=== PATIENT | female | born 2000 | race Hispanic/Latino ===

== ENCOUNTER → 2022-08-29 | Outpatient (CLI) | payer OTHER, SELFPAY ==
[2022-08-29 12:34] LABS: Absolute Lymphocyte Count 2.97 X10^3/uL (0.83-4.51); Absolute Neutrophil Count 3.2 X10^3/uL (2.0-7.7); Basophil# 0.02 X10^3/uL; Basophil% 0.3 % (0-1); Eosinophil# 0.16 X10^3/uL; Eosinophils% 2.3 % (0-5); Hematocrit 41.2 % (37-47); Hemoglobin 13.4 g/dL (12.0-15.0); Lymphocyte # 2.97 X10^3/ul (0.83-4.51); Lymphocyte % 43.5 % (19-41); Mean Corp Hgb Conc 32.5 g/dL (32-36); Monocyte# 0.43 X10^3/uL; Monocyte% 6.3 % (0-10); NRBC Flagged by Analyzer 0 % (0-5); Neutrophil # 3.23 X10^3/uL (2.7-7.7); Neutrophil % 47.5 % (47-70); Platelet Count 251 K/mm3 (150-450); RBC Distribution Width CV 13.9 % (11.6-14.6); RBC Distribution Width SD 43.7 fl (35.1-43.9); Red Blood Count 4.79 M/mm3 (4.2-5.4); White Blood Count 6.8 K/mm3 (4.4-11.0)
[2022-08-29 12:48] LABS: hCG Titer Quant., Serum < 1 mIU/mL (1-3)
[2022-08-29 13:09] LABS: Estradiol 185.8 pg/mL; Follicle Stimulating Hormone 4.1 mIU/mL; Luteinizing Hormone 16.5 mIU/mL; T4 Free Direct 1.12 ng/dL (0.76-1.46); Thyroid Stim Hormone (TSH) 2.93 uIU/mL (0.358-3.74)
[2022-09-05 12:08] LABS: Testosterone, Free 2.06 ng/dL (0.10-0.85); Testosterone, Total 58 ng/dL (13-71)
[2022-09-05 14:30] LABS: Testosterone, % Free 3.55 % (0.50-2.80)
== END | disposition home or self-care (01) ==
PROVIDERS: Visit Provider Obstetrics & Gynecology
DX: N93.9 Abnormal uterine and vaginal bleeding, unspecified (principal)
CPT/HCPCS: 36415; 82670; 83001; 83002; 84402; 84403; 84439; 84443; 84702; 85025